=== PATIENT | female | born 2000 | race Hispanic/Latino ===

== ENCOUNTER 2024-05-01 04:45 | Inpatient (IN) | payer OTHER ==
[2024-05-01 05:05] VITALS: BMI 31.2
[2024-05-03 07:26] VITALS: BP 110/67; TEMP 97.7
== END 2024-05-03 14:15 | disposition home or self-care (01) | DRG 807 ==
LOC: CSHLD/OP 04:45 → CSHLD 05:19 → CSHPP 15:48
PROVIDERS: ADMIT Obstetrics & Gynecology; ATTEND Obstetrics & Gynecology
PROC: 10E0XZZ Delivery of Products of Conception, External Approach (ICD-10-PCS; principal; 2024-05-01)
PROC: 0KQM0ZZ Repair Perineum Muscle, Open Approach (ICD-10-PCS; 2024-05-01)
DX: O60.14X0 Preterm labor third trimester with preterm delivery third trimester, not applicable or unspecified (principal); Z37.0 Single live birth; Z3A.37 37 weeks gestation of pregnancy; O70.1 Second degree perineal laceration during delivery; O69.81X0 Labor and delivery complicated by cord around neck, without compression, not applicable or unspecified
CPT/HCPCS: 36415; 85027; 86780; 86850; 86900; 86901; 87340; 99285; J2001; J2405; J2590; J3010